=== PATIENT | female | born 1970 | race Caucasian/White ===

== ENCOUNTER → 2018-06-16 15:47 | Outpatient (REF) | payer SELFPAY | LOC: OM 15:47 | PROVIDERS: PCP General Practice; Visit Provider Nurse Practitioner Family | DX: Z11.1 Encounter for screening for respiratory tuberculosis (principal) ==

== ENCOUNTER 2019-03-28 20:26 | Emergency (ER) | payer BC, SELFPAY ==
[2019-03-28] VITALS (13 sets, daily range): BP systolic 51–134; BP diastolic 19–77; PULSE 87–115; RESP 16–30; TEMP 36.7; O2SAT 93–98
[2019-03-28] MEDS: Famotidine 20 MG TAB PO (21:10)
[2019-03-28] MEDS: Mylanta Suspension 30 ML CUP PO (21:10)
--- NOTE | 2019-03-28 21:18 | ED.GENADUL_ITS ---
Discharge Plan Disposition Patient Disposition: HOME Discharge Details Chief Complaint: Chest Pain Clinical Impression: Chest pain Primary Care Provider: Darren Solitario ED Provider: Francisco Saldivar Home Meds and New Rx's Prescriptions: No Action No Known Home Meds RF: 0 Discharge Instructions Instructions: Chest Pain (ED) Additional Instructions: Diagnostic workup today was limited and should not be considered comprehensive or complete. A chest xray was recommended as part of your diagnostic workup and this was refused. It is recommended that definitive testing including stress test be performed as soon as possible and ideally within 72 hours of ED evaluation for chest pain concerning for possible acute coronary syndrome (heart attack). Please contact your primary care physician to arrange follow-up. Return to the ER at anytime for additional diagnostic workup or if you are concerned about any new symptoms. Referrals: Darren Solitario MD [Primary Care Provider] - Medical Decision Making 21:14 --49-year-old female here with chest discomfort and sensation of rapid heart rate after sudden onset of vomiting. I suspect likely food poisoning related to egg salad sandwich and esophageal irritation related to vomiting. Consider ACS. ECG reviewed and interpreted by me: Normal sinus rhythm 93 bpm, normal axis, no STEMI, nondiagnostic. Plan to check troponin. Consider pulmonary him with some. Patient does not have any known risk factors. Patient low risk by Wells criteria. She was slightly tachycardic at just under 100 bpm. Plan to check d-dimer. IV access was difficult per nursing. Patient refusing additional IV access at this time. Patient also refusing recommended chest x-ray. Reviewed risks and benefits of additional IV access and additional diagnostic testing, patient verbalized understanding of my concerns and reason for testing and risks of not having testing, patient decisional making capacity, patient provided informed refusal for chest x-ray and IV access at this time. Patient is mildly anxious. I offered anxiolytic and patient refused. 23:28 -- Labs reviewed. Initial trop neg. Patient feels much better after mylanta and pepcid, symptoms completely resolved, requests discharge. I explained that heart attack not yet ruled out and plan for delt trop. Patient initially resistant but agreed to stay in ED for second trop at 3 hours but refused to stay longer. Patient was informed of risk of leaving ED prior to completion of workup. Patient has decisional making capacity and provided informed refusal for further observation awaiting lab results and additional diagnostics that were recommended. -- Patient agreed to stay until trop resulted. Trop neg. Usual and customary discharge instructions were provided. HPI General Mode of arrival: ambulatory . Date/Time Provider Initiated Documentation: 03/28/19 20:50 . Limitations to Documentation: no limitations . Information obtained by: patient . HPI Narrative: 49-year-old female with history of asthma presents with chief complaint of chest discomfort. Patient notes that around 8 PM she suddenly developed nausea and vomiting. She vomited 3 times. Vomit was noted to be yellow in color. This occurred shortly after eating an egg salad sandwich. No one else consumed the egg salad. After vomiting she was noted to have chest discomfort described as pressure rated 5- 6/10 and associated sensation of rapid heart rate. Patient notes chest pain worse and lying down. She also had some associated shortness of breath. Chest discomfort has persisted although not as severe. Discomfort is currently rated 3/10. Discomfort is localized to left and central anterior chest. She has no associated abdominal pain. Nausea has resolved. No shortness of breath at this time. She continues to feel as though her heart is beating faster than normal. No recent long distance travel. No immobility. No surgery. No leg swelling or calf pain. Related Data Home Medications Medication Instructions Recorded Confirmed Unknown [No Known Home Meds] 03/28/19 03/28/19 Allergies Allergy/AdvReac Type Severity Reaction Status Date / Time hay AdvReac Mild sneezing, Uncoded 03/28/19 20:34 runny nose General Stated Complaint: Chest Pain CHARANJIT: 2 Review of Systems Review of Systems All systems reviewed & are unremarkable except as noted in HPI and below Constitutional Denies fever(s) Cardiovascular Reports chest pain, Denies pedal edema and Reports palpitations Endocrine Reports palpitations PFSH Family History Mother Hyperlipidemia Father Hyperlipidemia Social History Do you feel safe at home: Yes Do you feel safe in your relationship?: Yes Exam Const General: no acute distress, well developed, acute distress, not in distress and anxious Orientation: alert and awake Limitations: mental status not altered HENMT Head: normal to inspection and normocephalic Mouth: moist mucous membranes Eyes General: appearance normal, both eyes and all related structures Conjunctivae: conjunctivae normal Neck Neck: trachea midline, supple and no lymphadenopathy noted Resp Effort & Inspection: normal respiratory effort, cough, not labored and no respiratory distress Auscultation: clear to auscultation bilaterally, no rales, no rhonchi and no wheezes Cardio Jugular venous pressure: no JVD Rate: regular rate Rhythm: regular rhythm Heart Sounds: S1 normal, S2 normal, no gallops, no murmurs and no rubs GI Palpation: soft and nontender Skin General skin exam: no rashes or lesions noted and dry skin Other: warm Neuro General: alert, awake and oriented x3 Extrem General: clubbing, cyanosis or edema noted and no calf tenderness Psych Appearance: grossly normal Affect: normal affect Course Vital Signs Temperature 36.7 C 03/28/19 20:34 Pulse 97 H 03/28/19 20:34 Respiratory Rate 16 03/28/19 20:34 Blood Pressure 134/77 03/28/19 20:34 Pulse Oximetry 98 03/28/19 20:34 Temperature 36.7 C 03/28/19 20:34 Temperature Source Temporal Artery Scan 03/28/19 20:34 Pulse 97 H 03/28/19 20:34 Respiratory Rate 16 03/28/19 20:34 Respiratory Effort 03/28/19 20:34 Blood Pressure 134/77 03/28/19 20:34 Blood Pressure Position Sitting 03/28/19 20:34 Pulse Oximetry 98 03/28/19 20:34 Oxygen Delivery Method Room Air 03/28/19 20:34 Oxygen Flow Rate 0 03/28/19 20:34
[2019-03-28 21:23] LABS: Abs Immature Grans 0.03 k/cumm (0.0-0.09); Absolute Basophil Count 0.03 k/cumm (0.0-0.2); Absolute Eosinophil Count 0.44 k/cumm (0.0-0.7); Absolute Lymphocyte Count 2.34 k/cumm (1.2-3.4); Absolute Monocyte Count 0.58 k/cumm (0.11-0.7); Absolute Neutrophil Count 7.26 k/cumm (1.2-6.7); Basophils % 0.3; Eosinophils % 4.1; HGB 14.3 g/dL (12.0-15.5); Immature Grans % 0.3; Lymphocytes % 21.9; Mean Corp. HGB Concentration 33.3 g/dL (32.0-36.0); Mean Corpuscular Volume 93.3 fL (80-95); Mean Platelet Volume 10.5 fL (8.0-11.0); Monocytes % 5.4; Platelet Count 298 x1000/uL (130-400); RBC 4.61 m/cumm (4.00-5.20); RBC Distribution Width 13.2 % (11.7-14.6); White Blood Cell Count 10.68 k/cumm (4.4-10.8)
[2019-03-28 21:36] LABS: ALT 39 U/L (12-78); AST 30 U/L (15-37); Albumin 3.9 g/dL (3.4-5.0); Alkaline Phosphatase 74 U/L (46-116); Anion Gap 7.8 mmol/L (3-11); BUN 16 mg/dL (7-18); Bilirubin, Total 0.3 mg/dL (0.2-1.0); CO2 30.2 mmol/L (21.0-32.0); CREATININE 0.83 mg/dL (0.55-1.02); Calcium 9.3 mg/dL (8.5-10.1); Chloride 100 mmol/L (98-107); Glucose 93 mg/dL (70-100); Potassium 3.6 mmol/L (3.5-5.1); Sodium 138 mmol/L (136-145); Total Protein 8.1 g/dL (6.4-8.2)
[2019-03-28 21:38] LABS: Troponin I < 0.02 ng/mL (0.00-0.06)
[2019-03-28 22:02] LABS: D-Dimer 240 ng/mlFEU (<500)
[2019-03-29 00:04] LABS: Troponin I < 0.02 ng/mL (0.00-0.06)
[2019-03-29 21:20] VITALS: BP 124/55; PULSE 89; RESP 18; O2SAT 97
== END 2019-03-29 00:10 | disposition home or self-care (01) ==
PROVIDERS: Emergency Provider Student in an Organized Health Care Education/Training Program; PCP General Practice
DX: R07.9 Chest pain, unspecified (principal); R00.0 Tachycardia, unspecified; R11.10 Vomiting, unspecified
CPT/HCPCS: 36415; 80053; 93005; 99284; 84484; 85025; 85379; 93010

== ENCOUNTER 2019-12-16 00:28 | Outpatient (CLI) | payer BC, SELFPAY ==
[2019-12-16 10:23] LABS: Calculated LDL 125 mg/dL (<100); Cholesterol 187 mg/dL (<200); HDL Cholesterol 50 mg/dL (40-60); Triglyceride 64 mg/dL (<150)
== END 2019-12-16 00:48 ==
PROVIDERS: PCP Nurse Practitioner; Visit Provider Nurse Practitioner
DX: Z13.6 Encounter for screening for cardiovascular disorders (principal)
CPT/HCPCS: 36415; 80061

== ENCOUNTER 2020-01-25 20:07 | Outpatient (REF) | payer BC, SELFPAY | END 2020-01-25 20:27 | LOC: LBN 20:07 | PROVIDERS: PCP Nurse Practitioner; Visit Provider Nurse Practitioner | DX: R30.0 Dysuria (principal) | CPT/HCPCS: 87086 ==

== ENCOUNTER 2020-02-05 21:09 | Outpatient (REF) | payer BC, SELFPAY ==
[2020-02-07 15:09] LABS: Chlamydia Result Negative (Negative); GC Result Negative (Negative)
== END 2020-02-05 21:29 ==
LOC: NCHCN 21:09
PROVIDERS: PCP Nurse Practitioner; Visit Provider Nurse Practitioner Family
DX: R30.0 Dysuria (principal)
CPT/HCPCS: 87491; 87591; 87480; 87510; 87660

== ENCOUNTER 2020-02-06 07:20 | Emergency (ER) | payer BC, SELFPAY ==
[2020-02-06] VITALS (15 sets, daily range): BP systolic 123–144; BP diastolic 49–68; PULSE 89–111; RESP 16–23; TEMP 37.7; O2SAT 95–97
[2020-02-06 07:55] LABS: Bilirubin Negative (Negative); Blood Large (Negative); Clarity Clear (Clear); Glucose Negative (Negative); Ketones Negative (Negative); Leukocyte Esterase Trace (Negative); Nitrite Negative (Negative); Specific Gravity 1.015 (1.005-1.025); Urobilinogen 0.2 EU/dL (Up TO 0.2)
[2020-02-06] MEDS: Lactated Ringers 1,000 ML 1000 ML IV (07:55)
[2020-02-06 08:00] LABS: Abs Immature Grans 0.02 k/cumm (0.0-0.09); Absolute Basophil Count 0.02 k/cumm (0.0-0.2); Absolute Eosinophil Count 0.03 k/cumm (0.0-0.7); Absolute Lymphocyte Count 0.94 k/cumm (1.2-3.4); Absolute Monocyte Count 0.37 k/cumm (0.11-0.7); Absolute Neutrophil Count 8.78 k/cumm (1.2-6.7); Basophils % 0.2; Eosinophils % 0.3; HCT 41.4 % (36.0-46.0); HGB 13.9 g/dL (12.0-15.5); Immature Grans % 0.2 %; Lymphocytes % 9.3; Mean Corp. HGB Concentration 33.6 g/dL (32.0-36.0); Mean Corpuscular Hemoglobin 31.2 pg (27.0-33.0); Mean Corpuscular Volume 92.8 fL (80-95); Mean Platelet Volume 10.1 fL (8.0-11.0); Monocytes % 3.6; Neutrophils % 86.4; Platelet Count 319 x1000/uL (130-400); RBC 4.46 m/cumm (4.00-5.20); RBC Distribution Width 13.4 % (11.7-14.6); White Blood Cell Count 10.16 k/cumm (4.4-10.8)
[2020-02-06 08:11] LABS: Bacteria Few HPF (Negative); C & S Indicated? Yes; Casts Negative LPF (Negative); Crystals Negative HPF (Negative); Epithelial Cells Few HPF (Negative); Mucus Negative (Negative); WBC 20-50 HPF (0-5)
[2020-02-06 08:17] LABS: ALT 30 U/L (14-59); AST 16 U/L (15-37); Albumin 3.7 g/dL (3.4-5.0); Alkaline Phosphatase 66 U/L (46-116); Anion Gap 9.9 mmol/L (3-11); BUN 9 mg/dL (7-18); Bilirubin, Total 0.5 mg/dL (0.2-1.0); CO2 26.1 mmol/L (21.0-32.0); Calcium 9.1 mg/dL (8.5-10.1); Chloride 104 mmol/L (98-107); Glucose 112 mg/dL (74-106); Magnesium 1.9 mg/dL (1.8-2.4); Potassium 3.6 mmol/L (3.5-5.1); Sodium 140 mmol/L (136-145); Total Protein 7.8 g/dL (6.4-8.2)
[2020-02-06 08:19] LABS: Troponin I < 0.05 ng/Ml (<0.06)
--- NOTE | 2020-02-06 08:45 | DI.RAD_ITS ---
EXAM: XR PORTABLE CHEST AP XR PORTABLE CHEST AP CLINICAL HISTORY: fever. fever TECHNIQUE: 2D digital imaging was performed. COMPARISON: No exams were available for comparison FINDINGS: LUNGS: Clear. No pleural abnormality seen. HEART: Normal. MEDIASTINUM: Normal. OTHER FINDINGS: None. IMPRESSION: No acute pulmonary findings. DATA REPOSITORY: RADIATION DOSE DELIVERED:
--- NOTE | 2020-02-06 08:51 | W.ED.GENAD ---
Discharge Plan Disposition Patient Disposition: HOME Condition: Stable Discharge Details Chief Complaint: Chest Pain Clinical Impression: UTI (urinary tract infection), Fever and chills Primary Care Provider: Melanie Oliver ED Provider: Danika Gaviria Home Meds and New Rx's Prescriptions: New nitrofurantoin monohyd/m-cryst [Macrobid] 100 mg capsule 100 mg PO BID Qty: 14 RF: 0 Continued albuterol sulfate [ProAir HFA] 90 mcg/actuation HFA aerosol inhaler 2 puff IH 6XD PRN (Reason: shortness of breath or wheezing) Qty: 18 RF: 0 metronidazole [Flagyl] 500 mg tablet 500 mg PO BID Qty: 14 RF: 0 metronidazole 500 mg tablet 500 mg PO Q12H Qty: 14 RF: 0 Discharge Instructions Instructions: Urinary Tract Infection in Women (ED), Fever in Adults (ED) Additional Instructions: Drink plenty of fluids. Use antibiotic as prescribed. Consider probiotic. Use Flagyl prescribed by your doctor. Follow-up promptly with your doctor for reevaluation for any persistence of symptoms lasting greater than 2 to 3 days. Have coded testing as discussed. Do not work until you are cleared by a negative test to return to nursing homes. Convalescent home until testing results. Tylenol for fever if needed. Urine culture pending Observe closely for any abdominal pain. For any increasing abdominal pain or worsening abdominal symptoms return to the emergency room for consideration of more advanced imaging as discussed. Return for any difficulty breathing, shortness of breath, chest pain or worsening symptoms sooner if needed as discussed Stand Alone Forms: Work Release Medical Decision Making Is a very pleasant 50-year-old patient presenting to the emergency room for complaints of fever for the last 3 days. Patient was recently seen and treated after developing dysuria, urgency, frequency and lower abdominal discomfort greater than 1 week ago for urinary tract infection with a course of Keflex 250 mg 4 times daily for 1 week. Patient was compliant with antibiotics did feel improved after taking antibiotic however completed course of antibiotics on Wednesday morning, by Wednesday evening she had return of dysuria, urgency and frequency. Patient reports intermittent urinary symptoms. She has had fever since Wednesday, the last 3 days has had persistent fever relieved with Tylenol. Patient denies headaches or dizziness. Patient did see her PCP yesterday had repeat urinalysis which was unremarkable for persistent infection also had vaginal cultures performed. 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 Patient reports while at work yesterday morning at approximately 8:00 in the morning she noted her heart racing and associated chest pressure. Patient reports intermittent heart racing since that time. She reports chest pressure and discomfort persisted through the day yesterday, worse in the evening. Patient was able to sleep last night, she did wake with a fever at approximately 2:00 this morning took Tylenol. Patient reports chest pressure persisted and morning. Patient reports pressure is less at this time, has no chest pain currently. Patient denies any associated radiating chest pain symptoms. Patient reports predominantly tachycardia she did report at work yesterday she noted a heart rate up to 150 while working. Patient reports heart rate elevated while ambulating as well as when sedentary. Patient concerned with the etiology of persistent fever. Patient's initial EKG reveals a heart rate of 94, sinus rhythm, normal intervals. No ST segment changes. In consideration for possible Covid infection this patient does work with the public at a long-term, there have been no positive cases confirmed at facility she works in however at this time community spread is a consideration. Will consider testing for Covid if no other source is identifiable. Plan to check chest x-ray, urinalysis, CBC, lactate and blood cultures. Plan to provide 2 L of IV fluid given patient's reported tachycardia and febrile concerns. Patient agrees with this plan of care. CBC today reveals white blood cell count of 10.16 with minimal elevation in neutrophils. CMP normal. Urinalysis reveals large blood although patient is menstruating, trace leukocyte Estrace present, white blood cells present 20-50 per have powered field and few bacteria present on microscopic. Recent urine culture: Urine Culture Final 01/27/20-807 Day 1 Result ISOLATES BELOW ISOLATE 1 COLONY COUNT 10,000 - 50,000 COLONIES/ML ISOLATE 1 APPEARANCE Mixed Gram Positive Berry Day 2 Result ISOLATES BELOW ISOLATE 1 COLONY COUNT 10,000 - 50,000 COLONIES/ML ISOLATE 1 APPEARANCE Mixed Gram Positive Berry Possible contaminated collection Organism 1 GRAM POSITIVE BERRY,MIXED COLONY COUNT 10,000 - 50,000 COLONIES/ML Patient reports her chest pain and upper abdominal pain have entirely improved after receiving IV fluids. Patient's vital signs normalized. Patient had mild complaints of persistent suprapubic discomfort although is currently menstruating. Patient feels significantly improved at this time. Chest x-ray unremarkable for acute process. Initial troponin as well as serial troponin remain negative. Patient is low risk heart score. Patient does not feel she needs additional admission to the hospital or further cardiac testing at this time as her chest pressure has entirely improved. I did recommend given her complaints of chest pressure despite normal evaluation in the emergency room that she should have prompt follow-up with PCP. Patient agrees with this plan of care. Advised to return for any increasing cardiac symptoms, difficulty breathing dizziness or weakness. After discussion with the patient, urinalysis results were reviewed and discussed previous urine culture. Patient did report significant improvement with course of oral antibiotics and urinary symptoms. Patient reports return of urinary symptoms after completing course of antibiotics. Given patient's urinalysis results which are positive for white blood cell and small amounts of bacteria and patient's persistent dysuria urgency and frequency we will plan to add new antibiotic specifically Macrobid as she was previously on Keflex. Patient agrees with this plan of care. Patient's vaginal path testing did reveal positive Gardnerella, PCP has already called in prescription for Flagyl which patient plans to begin. Blood cultures were drawn, lactate is negative, white blood count normal, patient improving in symptoms. We did discuss more advanced imaging related to patient's abdominal complaints however given her improvement in symptoms she would prefer to avoid any advanced imaging at this time and closely observe her abdomen for any persistence or worsening pain. Given patient's work as a physical therapist in multiple nursing homes locally will test for possible Covid as source of fever and quarantine patient until results return. We did discuss alarming symptoms of Covid for which patient should return. patient agrees with this plan of care. Patient feels comfortable discharge home at this time. Again patient is feeling improved. The patient was stable and requested discharge. Prior to discharge, my usual and customary return precautions were reviewed with the patient - this included follow-up instructions and reasons to return to the Emergency Department if conditions worsens, does not improve as expected, or other new concerns arise. HPI General Date/Time Provider Initiated Documentation: 02/06/20 07:34. HPI Narrative: Is a 50-year-old patient presenting to the emergency room for complaints of persistent fever. Patient reports fever for the last 3 days intermittently. Patient was treated greater than 1 week ago for urinary tract infection, completed a course of Keflex 250 mg 4 times daily for 7 days on Wednesday morning. Patient reports Wednesday evening she had mild return of dysuria. She did report urinary frequency overnight on Wednesday. Patient reports persistent febrile sensation for the last 3 days. Patient reports yesterday while working she had onset of tachycardia and chest pressure. Denies radiating symptoms to the neck or arms. Denies back pain. Patient reports chest pressure fairly constant throughout the day worsened in the evening. Patient was able to sleep. She awoke feeling febrile again at approximately 2:00 took Tylenol and was able to sleep for the remainder of the morning. Patient reports she has persistent chest pressure this morning which is improved at this time. Patient reports mild abdominal aching but no nausea, vomiting or diarrhea. Patient does report some lower abdominal discomfort which was similar to what she experienced with UTI previously. Patient denies nasal congestion, sore throat or coughing. No headaches or dizziness. Denies body ache. Eating and drinking without difficulty however has no appetite in the last 24 hours. Related Data Home Medications Medication Instructions Recorded Confirmed albuterol sulfate 90 mcg/actuation 2 puff IH 6XD PRN #18 gm 01/30/20 02/06/20 aerosol inhaler metronidazole 500 mg tablet 500 mg PO BID #14 tab 02/06/20 metronidazole 500 mg tablet 500 mg PO Q12H #14 tab 02/06/20 nitrofurantoin monohyd/m-cryst 100 mg PO BID #14 cap 02/06/20 [Macrobid] Previous Rx's Medication Instructions Recorded albuterol sulfate 90 mcg/actuation 2 puff IH 6XD PRN #18 gm 01/30/20 aerosol inhaler metronidazole 500 mg tablet 500 mg PO BID #14 tab 02/06/20 metronidazole 500 mg tablet 500 mg PO Q12H #14 tab 02/06/20 nitrofurantoin monohyd/m-cryst 100 mg PO BID #14 cap 02/06/20 [Macrobid] Allergies Allergy/AdvReac Type Severity Reaction Status Date / Time hay AdvReac Mild sneezing, Uncoded 02/06/20 07:31 runny nose General Stated Complaint: Chest Pain CHARANJIT: 3 Review of Systems Constitutional Constitutional: Reports chills, Denies fatigue, Reports fever(s), Denies headache(s), Reports malaise and Reports poor appetite ENT Ears, Nose, Mouth, and Throat: Denies vertigo, Denies dizziness, Denies headache(s), Denies nasal congestion, Denies post nasal drip, Denies sinus pain, Denies sinus pressure and Denies sore throat Cardiovascular Cardiovascular: Denies chest pain with activity, Denies leg edema, Denies lightheadedness, Reports palpitations, Denies dyspnea and Denies dyspnea on exertion Respiratory Respiratory: Denies chest congestion, Denies cough, Denies dyspnea, Denies dyspnea on exertion, Denies stridor and Denies wheezing Gastrointestinal Gastrointestinal: Denies diarrhea, Denies nausea and Denies vomiting Genitourinary Genitourinary: Denies difficulty voiding, Denies genital pruritis, Reports dysuria, Reports urinary urgency, Denies vaginal pruritus and Reports other (Currently menstruating) Integumentary/Breasts Skin/Breast: Denies rash Neurologic Neurologic: Denies vertigo, Denies dizziness and Denies headache(s) Endocrine Endocrine: Denies fatigue and Reports palpitations Allergic/Immunologic Allergic/Immunologic: Denies wheezing [facility] Social History Smoking/Tobacco Use Status: Never Alcohol Intake: current Alcohol Intake frequency: holidays/special occasions only Drug use: Never Substance use type: does not use Caregiver/Support person: No Household members: spouse Housing: house Communication Needs: None Do you need help understanding health information?: Never Pets and animals: Yes Pets and animals: cat(s), dog(s) and other Details: rabbit Sexually active: Yes Do you think of yourself as: straight/heterosexual Current gender identity: female What is your relationship status?: How often do you talk on the phone with friends or family?: three or more times per week How often do you get together with friends or relatives?: twice per week How often do you attend caodaism or hoahaoism services?: decline to answer Do you belong to any clubs or organized social groups?: no Panel score (0-1 are the most socially isolated patients): 2 What type of physical activity do you participate in: walking Frequency: daily Aster/Jehovah'S Witness: Spiritual Special aster needs: No Seatbelt use: always Helmet use: Yes Helmet use: always Drive intox or ride w/intox 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 Well hydrated. Alert and oriented. HENMT: Head nomocephalic, normal to inspection. Atraumatic. Hearing grossly normal. External ear canal no erythema or swelling. TM normal bilaterally. Nose normal to inspection. No rhinnorhea. Normal facial exam. Oral mucosa normal. Tounge normal. Dentition normal. Mild erythema to posterior oropharynx. Uvula midline. EYES: General normal appearance. Alignment normal. Eyelids normal. Conjunctiva normal. Sclera normal. PERRL. NECK: Normal visual inspection. FROM. No lymphadenopathy. Trachea midline. No Midline tenderness. CHEST: Normal insepection of the chest. RESP: Normal respiratory effort. Speaking full sentences. No cough. No wheezing. No retractions. Clear to auscaltation. Breath sound equal and present bilaterally. CARDIO: No JVD. Normal PMI. Regular Rate. Regular Rhythm. Normal peripheral pulses. GI: Normal inspection of abdomen. No distension. Soft. Mild diffuse tenderness to the upper and lower quadrants, no sharp pain with palpation. No peritoneal signs. Bowel sounds present in all 4 quadrants. No rebound. No gaurding. MUSCULOSKELETAL: Normal Gait. FROM of all extremities. Distal neurovascularly intact. Sensation intact distally. Back: No CVA tenderness noted bilaterally SKIN: Normal. Dry. No rashes. NEURO: Alert and awake. Speech clear. PSYCH: Normal affect. Cooperative. Course Vital Signs Vital signs: Vital Signs Temperature 37.7 C H 02/06/20 07:27 Pulse 111 H 02/06/20 07:27 Respiratory Rate 16 02/06/20 07:27 Blood Pressure 123/49 L 02/06/20 07:27 Pulse Oximetry 95 02/06/20 07:27 Temperature 37.7 C H 02/06/20 07:27 Temperature Source Tympanic 02/06/20 07:27 Pulse 111 H 02/06/20 07:27 Respiratory Rate 16 02/06/20 07:56 Respiratory Effort Non-Labored 02/06/20 07:56 Respiratory Depth Normal 02/06/20 07:56 Respiratory Pattern Normal 02/06/20 07:56 Blood Pressure 123/49 L 02/06/20 07:27 Blood Pressure Position Sitting 02/06/20 07:27 Pulse Oximetry 95 02/06/20 07:27 Oxygen Delivery Method Room Air 02/06/20 07:27 Oxygen Flow Rate 0 02/06/20 07:27 Pain Level 5 02/06/20 07:56 Lab/Test Results Lab/Test Results: 02/06/20 08:41 Blood Blood Culture - Pending 02/06/20 08:41 Blood Blood Culture - Pending 02/06/20 07:42 Urine - Reflex from Ua Urine Culture - Pending Laboratory Tests Range/Units 02/06/20 02/06/20 02/06/20 07:42 07:51 07:51 WBC (4.4-10.8) k/cumm 10.16 RBC (4.00-5.20) m/cumm 4.46 Hgb (12.0-15.5) g/dL 13.9 Hct (36.0-46.0) % 41.4 MCV (80-95) fL 92.8 MCH (27.0-33.0) pg 31.2 MCHC (32.0-36.0) g/dL 33.6 RDW (11.7-14.6) % 13.4 Plt Count (130-400) x1000/uL 319 MPV (8.0-11.0) fL 10.1 Immature Gran % % 0.2 Neutrophils % 86.4 Lymphocytes % 9.3 Monocytes % 3.6 Eosinophils % 0.3 Basophils % 0.2 Absolute Neutrophils (1.2-6.7) k/cumm 8.78 H Absolute Lymphocytes (1.2-3.4) k/cumm 0.94 L Absolute Monocytes (0.11-0.7) k/cumm 0.37 Absolute Eosinophils (0.0-0.7) k/cumm 0.03 Absolute Basophils (0.0-0.2) k/cumm 0.02 Sodium (136-145) mmol/L 140 Potassium (3.5-5.1) mmol/L 3.6 Chloride (98-107) mmol/L 104 Carbon Dioxide (21.0-32.0) mmol/L 26.1 Anion Gap (3-11) mmol/L 9.9 BUN (7-18) mg/dL 9 Creatinine (0.55-1.02) mg/dL 0.90 Estimated GFR/1.73 m2 (mL/min/1.73m2) >= 60.00 Glucose (74-106) mg/dL 112 H Calcium (8.5-10.1) mg/dL 9.1 Magnesium (1.8-2.4) mg/dL 1.9 Total Bilirubin (0.2-1.0) mg/dL 0.5 AST (15-37) U/L 16 ALT (14-59) U/L 30 Alkaline Phosphatase (46-116) U/L 66 Troponin I (<0.06) ng/Ml < 0.05 Total Protein (6.4-8.2) g/dL 7.8 Albumin (3.4-5.0) g/dL 3.7 Urine Color (Yellow) Yellow Urine Clarity (Clear) Clear Urine pH (5-8) 6.0 Ur Specific [place] (1.005-1.025) 1.015 Urine Protein (Negative) mg/dL Negative Urine Ketones (Negative) mg/dL Negative Urine Blood (Negative) Large H Urine Nitrite (Negative) Negative Urine Bilirubin (Negative) Negative Urine Urobilinogen (Up TO 0.2) EU/dL 0.2 Ur Leukocyte Esterase (Negative) Trace H Urine RBC (0-2) HPF 5-10 H Urine WBC (0-5) HPF 20-50 H Ur Epithelial Cells (Negative) HPF Few Urine Crystals (Negative) HPF Negative Urine Bacteria (Negative) HPF Few Urine Casts (Negative) LPF Negative Urine Mucus (Negative) Negative Ur Culture Indicated? Yes Urine Glucose (Negative) mg/dL Negative POC- Test(urine) Negative
[2020-02-06 09:29] LABS: Lactate 1.2 mmol/L (0.6-1.4)
[2020-02-06] MEDS: Normal Saline 1,000 ML 1000 ML IV (09:53)
[2020-02-06 11:05] LABS: Troponin I < 0.05 ng/Ml (<0.06)
--- NOTE | 2020-02-07 06:26 | W.ED.FU ---
Date of service: 02/06/20 Follow Up Plan: Patient seen here yesterday and sent home on Macrobid for UTI and Flagyl for vaginosis. She was also placed in quarantine for COVID. She called this morning reporting new symptoms of nausea and vomiting. At this point she is having difficulty keeping Tylenol or liquids down. She is not having fever any further. She has no shortness of breath. Heart rate goes up a little bit with exertion but not much. Pulse ox has been fine. She is not having abdominal pain. Symptoms are likely related to taking Macrobid and Flagyl. Some possibility related to COVID as GI symptoms can sometimes predominate. However, at this point it does not sound that she would be ill enough to warrant return visit to the ED. Would recommend continue quarantine. Will call in prescription for Zofran ODT to her pharmacy to warehouse picker later today. In the meantime hold her antibiotics and stick with liquids. Once Zofran available may resume antibiotics but stagger dosing should not taking both at the same time. Return to ED for increasing shortness of breath, altered mental status, persistent vomiting, syncope, increasing saturations with tachycardia.
--- NOTE | 2020-02-07 09:19 | NUR.NOTE ---
Nursing Note: On this date, prescription for Zofran ODT 4mg one PO q6hr prn for nausea/vomiting was called in to [facility] Per Dr. Isauro Buckley. Haley Murillo.
== END 2020-02-06 11:35 | disposition home or self-care (01) ==
PROVIDERS: Emergency Medicine; Emergency Provider Physician Assistant; PCP Nurse Practitioner
DX: N39.0 Urinary tract infection, site not specified (principal); R50.9 Fever, unspecified; R07.9 Chest pain, unspecified; R00.0 Tachycardia, unspecified; N76.0 Acute vaginitis; B96.89 Other specified bacterial agents as the cause of diseases classified elsewhere
CPT/HCPCS: 36415; 80053; 81025; 87040; 93005; 96360; 96361; 99285; U0003; 71045; 81003; 81015; 83605; 83735; 84484; 85025; 87086; 93010

== ENCOUNTER 2020-02-06 11:32 | Outpatient (CLI) | payer BC, SELFPAY ==
[2020-02-07 15:28] LABS: COVID-19 RT-PCR Result Not Detected (NotDetected)
== END 2020-02-06 11:52 ==
PROVIDERS: PCP Nurse Practitioner; Visit Provider Physician Assistant
DX: Z20.828 Contact with and (suspected) exposure to other viral communicable diseases (principal)
CPT/HCPCS: U0003

== ENCOUNTER 2020-11-25 14:37 | Emergency (ER) | payer OTHER, SELFPAY ==
[2020-11-25] VITALS (9 sets, daily range): BP systolic 101–133; BP diastolic 41–66; PULSE 65–83; RESP 11–21; TEMP 36.6; O2SAT 97–99
--- NOTE | 2020-11-25 15:37 | W.ED.GENAD ---
Discharge Plan Disposition Patient Disposition: HOME Condition: Good Discharge Details Clinical Impression: Abdominal pain, Gallbladder polyp Primary Care Provider: Melanie Oliver ED Provider: Jessica Mensah Home Meds and New Rx's Prescriptions: Continued albuterol sulfate [ProAir HFA] 90 mcg/actuation HFA aerosol inhaler 2 puff IH 6XD PRN (Reason: shortness of breath or wheezing) Qty: 18 RF: 0 ascorbic acid (vitamin C) 2,000 mg Tablet Extended Release 2,000 mg PO DAILY RF: 0 zinc 25 mg Tablet 25 mg PO DAILY RF: 0 vitamin A 5,000 unit/0.1 mL Drops PO RF: 0 ergocalciferol (vitamin D2) 200 mcg/mL (8,000 unit/mL) Drops RF: 0 Bacterin 2 tab PO 4XW RF: 0 Spore Probiotics RF: 0 Discharge Instructions Instructions: Abdominal Pain (ED) Additional Instructions: Your exam, imaging and labs are reassuring here today. You were noted to have a polyp on her gallbladder which you should have followed up with repeat ultrasound in 6 months. Please discuss this further with his primary care. If you symptoms return, you may try Mylanta. If you find the Mylanta also, you may try a proton pump inhibitor such as Prilosec. These medications are available [id number]. Please take as prescribed. I have referred you to gastroenterology, you will hear from care management regarding follow-up. If you develop increased pain, inability stay hydrated, fever/chills or other new/worsening symptoms please seek care urgently once again. Referrals: Melanie Oliver, CERTIFIED NUCLEAR MEDICINE TECHNOLOGIST [Primary Care Provider] - Discharge Data Discharge Date/Time-TO BE ENTERED AT DEPARTURE: 11/25/20 17:37 Medical Decision Making <HAROON Meraz - Last Filed: 11/26/20 08:19> 50-year-old female with history of chronic abdominal pain since January presents with 2-day history of increased abdominal pain, nausea, vomiting x1. She is seeing a adjusto writer operator in [place] for small intestine bacterial overgrowth. She had her first Covid vaccine on Wednesday and questions if this may be a delayed reaction. Clinically she appears well, nontoxic. Vital signs are unremarkable. Her abdominal examination does reveal mild discomfort across the entire upper aspect with deep palpation but certainly no guarding, rebound, rigidity. Differential includes but not excluded to cholecystitis, gastritis, peptic ulcer disease, pancreatitis, irritable bowel syndrome, gastroenteritis, appendicitis, UTI, , pyelonephritis, etc. Patient is stating that she would like to get to the bottom of this today and questions if advanced imaging is indicated. Will obtain IV access, obtain CBC, CMP, urinalysis, lipase, urine . Given her abdomen is not acute, will opt for abdominal ultrasound versus CT at the moment. Given she reports nausea, vomiting, decreased p.o. intake since Wednesday, will give IV fluids. Medical Records Medical records reviewed: Yes I reviewed the patient's medical records. Lab Data Lab results reviewed: Yes I reviewed the patient's lab results. Labs: Laboratory Tests Range/Units 11/25/20 15:28 WBC (4.4-10.8) 10^3/uL 7.61 RBC (3.93-5.22) 10^6/uL 4.23 Hgb (11.2-15.7) g/dL 13.3 Hct (36.0-46.0) % 39.8 MCV (80-95) fL 94.1 MCH (27.0-33.0) pg 31.4 MCHC (32.0-36.0) % 33.4 RDW (11.7-14.6) % 12.2 Plt Count (130-400) 10^3/uL 282 MPV (8.0-11.0) fL 10.8 Immature Gran % 0.3 Neutrophils % 70.7 Lymphocytes % 21.3 Monocytes % 6.6 Eosinophils % 0.7 Basophils % 0.4 Nucleated RBC % % 0 Absolute Neutrophils (1.2-6.7) 10^3/uL 5.39 Absolute Lymphocytes (1.2-3.4) 10^3/uL 1.62 Absolute Monocytes (0.1-0.8) 10^3/uL 0.50 Absolute Eosinophils (0.0-0.7) 10^3/uL 0.05 Absolute Basophils (0.0-0.2) 10^3/uL 0.03 <HAROON Vizcarra - Last Filed: 11/25/20 17:28> Care transition myself and Sebastian Schuler PA-C. Please see his initial note regarding presentation, exam and history. In brief, patient is 50-year-old female with upper abdominal pain since January. This is been intermittent. She is concerned that she may have peptic ulcer disease versus gallbladder disease. Patient has been diagnosed with small intestinal bacterial overgrowth. Has been on special diet for this. Labs completed thus far include CBC, CMP and lipase with no significant abnormality. Patient did have blood and ketones in his urine. Negative leukocyte esterase, negative nitrites. This has reflex to culture. Ultrasound pending at this time. FINDINGS: Liver: Normal. No masses. Gallbladder: Echogenic nodule here to the gallbladder wall measuring 9 mm. Probable polyp. Gallbladder wall thickness 2 mm. Negative sonographic Vásquez sign. Common bile duct: 3 mm. Pancreas: Visualized pancreas is unremarkable. Right kidney: 10.7 cm. No nephrolithiasis or hydronephrosis. IMPRESSION: 9 mm gallbladder polyp. Recommend six-month follow-up ultrasound. I discussed his findings at length with the patient. Patient began her menses today which likely explains the blood in her urine. She states that this time she is asymptomatic except for menstrual cramps. I did discuss the use of Mylanta as her pain seems to be primarily epigastric in nature. However, she is not symptomatic at this time I do not feel that dose of her now would be of much yield. She will try Mylanta if she has onset of symptoms once again. I advised that if it is excessive for her she may start a proton pump inhibitor which is available [id number]. As the patient has had chronic abdominal symptoms, leading to her diagnosis of small intestinal bacterial overgrowth, I did refer her to gastroenterology. I advised that if she does have ulcers, she may require an upper endoscopy which could not be completed through the ED today. Patient would prefer to follow-up at [place] for this. All the patient's questions and concerns were addressed. We discussed return precautions. She will follow-up with her primary care for referral for repeat ultrasound in 6 months. Patient is agreement with this plan. HPI <HAROON Meraz - Last Filed: 11/26/20 08:19> General Mode of arrival: ambulatory. Date/Time Provider Initiated Documentation: 11/25/20 14:38. Limitations to Documentation: no limitations. Information obtained by: patient. HPI Narrative: This is a 50-year-old female, past medical history that includes small intestine bacterial overgrowth, presenting to the ER for evaluation. She states that since January she has had bilateral upper abdominal pain that has been there more often than not, occasionally made worse with food, sometimes associated with nausea. She has not brought this to the attention of her primary care provider. She has had 2 separate bowel infection and was placed on antibiotics twice which she states recapping in her stomach. She decided to see a naturopathic provider in [place], testing was performed, she changed her diet, and symptoms have somewhat gotten better. She was given the Covid vaccination on Wednesday, states that she immediately had a reaction to the vaccine, and required observation for approximately 30 minutes. She subsequently felt ill for the next 24 hours but then went back to baseline. On Wednesday while at work she states that her typical abdominal pain worsened, 10 out of 10, associated with worsening nausea and one episode of vomiting. It was also associated with a global headache. She reports decreased oral intake since Wednesday. She denies fever but reports subjective chills. Denies any chest pain, shortness of breath, back pain, dysuria. She reports chronic bowel issues, previously has been more so diarrhea in nature but as of late has had more constipation. She is still moving her bowels. She states that her pain was 10 out of 10 earlier today but then broke. States the pain now is a 6 or 7 out of 10 and much more tolerable, near her baseline. She states that she is concerned about gallstones versus an ulcer versus a delayed reaction to the Covid vaccine. Related Data Home Medications Medication Instructions Recorded Confirmed albuterol sulfate 90 mcg/actuation 2 puff IH 6XD PRN #18 gm 01/30/20 11/25/20 aerosol inhaler Bacterin 2 tab PO 4XW 11/25/20 Spore Probiotics 11/25/20 ascorbic acid (vitamin C) 2,000 mg PO DAILY 11/25/20 11/25/20 ergocalciferol (vitamin D2) mcg 11/25/20 vitamin A unit PO 11/25/20 zinc 25 mg PO DAILY 11/25/20 11/25/20 Previous Rx's Medication Instructions Recorded albuterol sulfate 90 mcg/actuation 2 puff IH 6XD PRN #18 gm 01/30/20 aerosol inhaler Allergies Allergy/AdvReac Type Severity Reaction Status Date / Time corn Allergy Nausea Unverified 11/25/20 15:41 gluten Allergy Nausea Unverified 11/25/20 15:41 peanut Allergy Nausea Unverified 11/25/20 15:41 tomato Allergy Nausea Unverified 11/25/20 15:41 wheat Allergy Nausea Unverified 11/25/20 15:41 hay AdvReac Mild sneezing, Uncoded 11/25/20 15:41 runny nose General Stated Complaint: Abd Prob CHARANJIT: 3 <HAROON Vizcarra Last Filed: 11/25/20 17:28> General Mode of arrival: ambulatory. Limitations to Documentation: no limitations. Information obtained by: patient and RN notes reviewed. Review of Systems <HAROON Meraz - Last Filed: 11/26/20 08:19> Constitutional Constitutional: Reports chills, Denies fatigue, Denies fever(s), Reports headache(s) and Denies weakness ENT Ears, Nose, Mouth, and Throat: Reports headache(s) Cardiovascular Cardiovascular: Denies chest pain and Denies dyspnea Respiratory Respiratory: Denies cough and Denies dyspnea Gastrointestinal Gastrointestinal: Reports abdominal pain, Reports constipation, Reports diarrhea, Reports nausea and Reports vomiting Genitourinary Genitourinary: Denies dysuria Musculoskeletal Musculoskeletal: Denies back pain, Denies numbness and Denies tingling Integumentary/Breasts Skin/Breast: Denies rash Neurologic Neurologic: Reports headache(s), Denies numbness, Denies tingling and Denies weakness Endocrine Endocrine: Denies fatigue <HAROON Vizcarra Last Filed: 11/25/20 17:28> Constitutional Constitutional: Reports as per HPI, Denies chills, Reports fatigue, Denies fever(s), Denies frequent falls, Denies snoring and Denies weakness Eyes Eyes: Reports as per HPI, Denies blurry vision, Denies change in vision and Reports photophobia ENT Ears, Nose, Mouth, and Throat: Denies vertigo and Denies neck pain Cardiovascular Cardiovascular: Reports as per HPI, Denies chest pain, Denies lightheadedness, Denies radiating jaw, neck or arm pain, Denies dyspnea and Denies dyspnea on exertion Respiratory Respiratory: Reports as per HPI, Denies chest congestion, Denies cough, Denies dyspnea, Denies dyspnea on exertion, Denies snoring, Denies stridor and Denies wheezing Gastrointestinal Gastrointestinal: Reports as per HPI, Denies abdominal pain, Denies change in bowel habits, Denies nausea and Denies vomiting Musculoskeletal Musculoskeletal: Reports as per HPI, Denies back pain, Denies myalgias, Denies muscle cramps, Denies neck pain and Denies numbness Integumentary/Breasts Skin/Breast: Reports as per HPI and Denies rash Neurologic Neurologic: Reports as per HPI, Denies abnormal movements, Denies abnormal speech, Denies behavioral changes, Denies confusion, Denies vertigo, Denies frequent falls, Denies localized weakness, Denies numbness, Denies sensory deficit and Denies weakness Psychiatric Psychiatric: Denies behavioral changes and Denies confusion Endocrine Endocrine: Reports fatigue Allergic/Immunologic Allergic/Immunologic: Denies wheezing PFSH <HAROON Meraz - Last Filed: 11/26/20 08:19> Family History Mother Hyperlipidemia Father Hyperlipidemia Alcohol abuse Brother No problems noted. Maternal Grandfather Alcohol abuse Lung cancer Paternal Grandfather Alcohol abuse Maternal Grandmother Emphysema lung Paternal Grandmother , age 97 Heart disease Social History Smoking/Tobacco Use Status: Never Smoking risk assessment performed?: Yes Alcohol Intake: never Drug use: Never Substance use type: does not use Caregiver/Support person: No Household members: spouse Housing: house Communication Needs: None Do you need help understanding health information?: Never Pets and animals: Yes Pets and animals: cat(s), dog(s) and other Details: rabbit Sexually active: Yes Do you think of yourself as: straight/heterosexual Current gender identity: female What is your relationship status?: How often do you talk on the phone with friends or family?: three or more times per week How often do you get together with friends or relatives?: twice per week How often do you attend protestant or congregation services?: decline to answer Do you belong to any clubs or organized social groups?: no Panel score (0-1 are the most socially isolated patients): 2 What type of physical activity do you participate in: walking Frequency: daily Aster/Baptism: Spiritual Special aster needs: No Seatbelt use: always Helmet use: Yes Helmet use: always Drive intox or ride w/intox tanker driver: No Do you feel safe at home: Yes Do you feel safe in your relationship?: Yes Female Reproductive History Menstrual Age of Menarche: 14 Duration of menses: 3-5 days Exam <HAROON Meraz - Last Filed: 11/26/20 08:19> Const General: cooperative, healthy appearing, comfortable and no acute distress Orientation: alert and awake [facility] Head: normal to inspection, normocephalic and atraumatic Eyes General: appearance normal, both eyes and all related structures Conjunctivae: conjunctivae normal Sclera: sclerae normal Neck Neck: normal visual inspection, full ROM, no meningeal signs, trachea midline and supple Resp Effort & Inspection: normal respiratory effort and able to speak in complete sentences Auscultation: clear to auscultation bilaterally Cardio Rate: regular rate Rhythm: regular rhythm GI Inspection: normal to inspection Palpation: soft, not firm, no guarding, no pulsatile masses and tender (Diffuse mild upper abdomen, deep palpation) Auscultation: normal bowel sounds Back/Spine/Pelvis Back: No back tenderness Skin General skin exam: no rashes or lesions noted Neuro General: patient alert, patient awake, moves all extremities and no focal motor deficits Cognition: normal cognition Gait: normal gait Sensory Exam: no sensory deficits noted Extrem General: normal to inspection and full ROM Psych Appearance: grossly normal Mental Status: mental status grossly normal <HAROON Vizcarra - Last Filed: 11/25/20 17:28> Const General: cooperative, healthy appearing, uncomfortable, no acute distress, well developed and well groomed Nutritional Appearance: average body habitus and well nourished Orientation: alert, awake and oriented x3 HENNC Head: normal to inspection, no palpable skull fracture, normocephalic and atraumatic Ears: hearing grossly normal bilaterally, external ears normal and TM's normal bilaterally General nose exam: external nose normal Mouth: oral mucosae normal and moist mucous membranes Throat: posterior oropharynx normal Eyes General: appearance normal, both eyes and all related structures Alignment and Position: alignment normal Periorbital: periorbital findings normal Eyelids: eyelids normal Sclera: sclerae normal Cornea: corneas normal Pupils: PERRL EOM: EOM intact bilaterally Neck Neck: normal visual inspection, full ROM, no lymphadenopathy and no meningeal signs Resp Effort & Inspection: normal respiratory effort, able to speak in complete sentences and no respiratory distress Auscultation: clear to auscultation bilaterally, no rales, no rhonchi and no wheezes Cardio Rate: regular rate Rhythm: regular rhythm Heart Sounds: S1 normal and S2 normal GI Inspection: normal to inspection and non-distended Palpation: soft, no hepatosplenomegaly, not firm, no guarding, not rigid and nontender Percussion: normal to percussion Auscultation: normal bowel sounds Back/Spine/Pelvis Cervical Spine: normal cervical lordosis and cervical ROM normal Skin General skin exam: no rashes or lesions noted Neuro General: patient alert, patient awake and patient oriented x3 Cranial Nerves: CN's II-XI intact bilaterally Cognition: normal cognition Speech: speech normal Gait: normal gait Motor: muscle tone normal throughout, strength 5/5 throughout, no pronator drift, no movement abnormalities noted and no fasciculations Sensory Exam: no sensory deficits noted Coordination: [id number] test normal and [id number] test normal Extrem General: normal to inspection, capillary refill normal, no pedal edema and no calf tenderness Psych Appearance: grossly normal and well kempt Mental Status: mental status grossly normal Speech and Movement: speech and movement normal Course <HAROON Meraz - Last Filed: 11/26/20 08:19> Vital Signs Vital signs: Vital Signs Temperature 36.6 C 11/25/20 14:46 Pulse 80 11/25/20 14:46 Respiratory Rate 13 11/25/20 14:46 Blood Pressure 133/66 11/25/20 14:46 Pulse Oximetry 97 11/25/20 14:46 Temperature 36.6 C 11/25/20 14:46 Temperature Source Skin 11/25/20 14:46 Pulse 71 11/25/20 15:01 Pulse 74 11/25/20 15:02 Respiratory Rate 21 11/25/20 15:02 Respiratory Effort Non-Labored 11/25/20 14:55 Blood Pressure 117/55 L 11/25/20 15:01 Blood Pressure Mean 69 11/25/20 15:01 Blood Pressure Position Sitting 11/25/20 14:46 Pulse Oximetry 98 11/25/20 15:02 Oxygen Delivery Method Room Air 11/25/20 14:46 Oxygen Flow Rate 0 11/25/20 14:46 Pain Level 4 11/25/20 14:46 Sign Out <HAROON Meraz - Last Filed: 11/26/20 08:19> Sign Out Data: Sign Out Comment: Abdominal pain since January, worse since Wednesday associated with nausea, vomiting x1. Had a reaction to her Covid vaccine on Wednesday, felt ill for the next 24 hours, and then back to baseline. Concern today per the patient is for potential gallstones versus ulcer versus reaction to her Covid vaccine. Clinically she appears well, nontoxic, nonacute abdominal examination. Obtaining CBC, CMP, lipase, urinalysis, test, and initiating abdominal ultrasound. I see no clear indication for emergent CT imaging. Will likely discharge with GI consultation. Last updated by Ken Schuler PA at 11/25/20 15:52
[2020-11-25] MEDS: Normal Saline 1,000 ML 1000 ML IV (15:38)
[2020-11-25 15:43] LABS: Abs Immature Grans 0.02 10^3/uL (0.0-0.06); Absolute Basophil Count 0.03 10^3/uL (0.0-0.2); Absolute Eosinophil Count 0.05 10^3/uL (0.0-0.7); Absolute Lymphocyte Count 1.62 10^3/uL (1.2-3.4); Absolute Neutrophil Count 5.39 10^3/uL (1.2-6.7); Basophils % 0.4; Eosinophils % 0.7; HCT 39.8 % (36.0-46.0); HGB 13.3 g/dL (11.2-15.7); Immature Grans % 0.3; Lymphocytes % 21.3; MCH 31.4 pg (27.0-33.0); MCHC 33.4 % (32.0-36.0); MCV 94.1 fL (80-95); MPV 10.8 fL (8.0-11.0); Monocytes % 6.6; Neutrophils % 70.7; Nucleated RBC 0 %; Platelet Count 282 10^3/uL (130-400); RBC 4.23 10^6/uL (3.93-5.22); RDW 12.2 % (11.7-14.6); RDW-SD 42.5 fL; WBC 7.61 10^3/uL (4.4-10.8)
[2020-11-25 15:48] LABS: Bilirubin Negative (Negative); Blood Large (Negative); Clarity Clear (Clear); Glucose Negative (Negative); Ketones 15 mg/dL (Negative); Leukocyte Esterase Negative (Negative); Nitrite Negative (Negative); Specific Gravity 1.015 (1.005-1.025); Urobilinogen 0.2 EU/dL (Up TO 0.2); pH 5.5 (5-8)
[2020-11-25 15:56] LABS: ALT 25 U/L (14-59); AST 17 U/L (15-37); Albumin 3.8 g/dL (3.4-5.0); Alkaline Phosphatase 60 U/L (46-116); Anion Gap 6.4 mmol/L (3-11); BUN 13 mg/dL (7-18); Bilirubin, Total 0.7 mg/dL (0.2-1.0); CO2 29.6 mmol/L (21.0-32.0); Calcium 9.1 mg/dL (8.5-10.1); Chloride 103 mmol/L (98-107); Glucose 93 mg/dL (74-106); Potassium 3.6 mmol/L (3.5-5.1); Sodium 139 mmol/L (136-145); Total Protein 7.4 g/dL (6.4-8.2)
[2020-11-25 16:01] LABS: Bacteria Moderate HPF (Negative); C & S Indicated? Yes; Casts Negative LPF (Negative); Crystals Negative HPF (Negative); Epithelial Cells Few HPF (Negative); Mucus Negative (Negative)
[2020-11-25 16:07] LABS: Lipase 94 U/L (73-393)
--- NOTE | 2020-11-25 16:15 | DI.US_ITS ---
EXAM: US ABDOMEN LIMITED CLINICAL HISTORY: epigastric pain, concern for gallbladder issue TECHNIQUE: Ultrasound abdomen performed using standard protocol. COMPARISON: No exams were available for comparison FINDINGS: LIVER: Normal size and echogenicity. No focal liver lesions are seen.. GALLBLADDER: 6 x 9 millimeter nonshadowing echogenic focus, consistent with a polyp. No evidence of cholelithiasis. No evidence of wall thickening. No pericholecystic fluid identified. BIRCH'S SIGN: Negative. BILIARY SYSTEM: No intrahepatic or extrahepatic biliary ductal dilation. KIDNEYS: The right kidney is normal in size. No evidence of renal calculi. No evidence of hydronephro sis. No renal mass or cyst identified. Left kidney not evaluated. PANCREAS: Normal where visualized. ABDOMINAL AORTA AND IVC: Visualized portions normal caliber. ASCITES: None seen. IMPRESSION: Gallbladder polyp. No evidence of acute cholecystitis. DATA REPOSITORY:
--- NOTE | 2020-11-25 16:49 | DI.VRAD_ITS ---
PROCEDURE INFORMATION: Exam: US Abdomen, Limited; Right Upper Quadrant Exam date and time: 11/25/2020 4:43 PM Age: 50 years old Clinical indication: Abdominal pain; Generalized TECHNIQUE: Imaging protocol: US abdomen. Real time ultrasound with image documentation. Limited exam focused on the right upper quadrant. COMPARISON: No relevant prior studies available. FINDINGS: Liver: Normal. No masses. Gallbladder: Echogenic nodule here to the gallbladder wall measuring 9 mm. Probable polyp. Gallbladder wall thickness 2 mm. Negative sonographic Vásquez sign. Common bile duct: 3 mm. Pancreas: Visualized pancreas is unremarkable. Right kidney: 10.7 cm. No nephrolithiasis or hydronephrosis. IMPRESSION: 9 mm gallbladder polyp. Recommend six-month follow-up ultrasound. Dictated and Authenticated by: Cassius Chavez MD. Ordering:FIDENCIO Lopez MD
--- NOTE | 2020-11-25 17:27 | NUR.NOTE ---
Referral to Care Management to follow up with gastroenterology in [facility].Nursing Note:
--- NOTE | 2020-11-27 11:08 | CMPROGNOTE_ITS ---
- If Service Date Differs Date of service: 11/27/20 Time of Service: 11:08 Care Management Progress Note Nona is seen in the ED on 11/25/20 for abdominal pain. At the request of ED provider, CM coordinates a referral to [facility] in [place], [place], to assist Nona in obtaining an appointment.
== END 2020-11-25 17:37 | disposition home or self-care (01) ==
PROVIDERS: Physician Assistant; Emergency Provider Physician Assistant; PCP Nurse Practitioner
DX: K82.4 Cholesterolosis of gallbladder (principal); R10.10 Upper abdominal pain, unspecified
CPT/HCPCS: 36415; 80053; 81025; 83690; 96361; 99284; 76705; 81003; 81015; 85025; 87086

== ENCOUNTER 2021-01-24 17:39 | Outpatient (REF) | payer BC, SELFPAY ==
--- NOTE | 2021-01-24 15:30 | PAPFT_PTH ---
PATIENT: Nona Canales LOC: [facility] U#:[id number] AGE/SX: 50/F ROOM: RE01/24/[address]: KARAN Frazier : 1970 BED: DIS: 01/24/2021 SPEC #: [id number] RECD: 01/24/21 17:47 STATUS: STUART REQ #: [id number] VILMA: 01/24/21 15:[address]: Reema Dukes DEPT: [facility] Cytology RECD BY: [place] Odonnell ENTERED: 01/24/21 17:47 SP TYPE: PAPFT OTHR DR: Melanie Oliver, PhD MONITOR WORKER Tissues: 1 - CX/ENDOCX FOR PAP SMEARS Procedures: PAP THIN PREP/UVM Screening HPV DNA PROBE Comments: [id number]
== END 2021-01-24 17:40 | disposition home or self-care (01) ==
LOC: LBN 17:39
PROVIDERS: PCP Nurse Practitioner; Visit Provider Nurse Practitioner Family
DX: Z12.4 Encounter for screening for malignant neoplasm of cervix (principal); Z11.51 Encounter for screening for human papillomavirus (HPV)
CPT/HCPCS: 88142; 87624

== ENCOUNTER 2021-02-10 15:08 | Outpatient (REF) | payer BC, SELFPAY ==
--- NOTE | 2021-02-10 14:55 | CER_PTH ---
PATIENT: Nona Canales LOC: [facility] U#:[id number] AGE/SX: 51/F ROOM: RE02/10/[address]: Kylah Ac DO : 1970 BED: DIS: 02/10/2021 SPEC #: [id number] RECD: 02/10/21 18:07 STATUS: STUART RE #: [id number] VILMA: 02/10/21 14:[address]: Kylah Ac DEPT: Surgical Specimen RECD BY: [place] Odonnell ENTERED: 02/10/21 18:08 SP TYPE: CER OTHR DR: Melanie Oliver, PhD HARBOR DEPARTMENT MANAGER Tissues: 1 - CERVICAL BIOPSY Procedures: GROSS AND MICRO LEVEL 4 Comments: [id number]
== END 2021-02-10 15:09 | disposition home or self-care (01) ==
LOC: LBN 15:08
PROVIDERS: PCP Nurse Practitioner; Visit Provider Obstetrics & Gynecology
DX: N84.1 Polyp of cervix uteri (principal)
CPT/HCPCS: 88305

== ENCOUNTER 2021-07-25 15:53 | Emergency (ER) | payer BC, SELFPAY ==
[2021-07-25 16:09] VITALS: BP 109/57; PULSE 79; RESP 16; TEMP 36.7; O2SAT 98
--- NOTE | 2021-07-25 16:15 | DI.US_ITS ---
Exam(s) US LOWER EXTREMITY VENOUS RT EXAM: US LOWER EXTREMITY VENOUS RT CLINICAL HISTORY: Right calf pain, R/O DVT TECHNIQUE: Right lower extremity venous ultrasound performed using grayscale, color-flow, and spectr al Doppler analysis. COMPARISON: No exams were available for comparison FINDINGS: The right common femoral, femoral and popliteal veins demonstrate normal compressibility, augmentatio n, and color Doppler. The posterior tibial veins are patent. The saphenofemoral junction is unremark able. There is no evidence of a Vargas cyst. The soft tissues are unremarkable. IMPRESSION: No DVT. DATA REPOSITORY:
--- NOTE | 2021-07-25 16:40 | W.ED.GENAD ---
Discharge Plan Disposition Patient Disposition: HOME Condition: Stable Discharge Details Clinical Impression: Leg pain, right Primary Care Provider: Melanie Oliver ED Provider: Radha Johnson Home Meds and New Rx's Prescriptions: No Action albuterol sulfate [ProAir HFA] 90 mcg/actuation HFA aerosol inhaler 2 puff IH 6XD PRN (Reason: shortness of breath or wheezing) Qty: 18 RF: 0 ascorbic acid (vitamin C) 2,000 mg Tablet Extended Release 2,000 mg PO DAILY RF: 0 zinc 25 mg Tablet 25 mg PO DAILY RF: 0 vitamin A 5,000 unit/0.1 mL Drops PO RF: 0 ergocalciferol (vitamin D2) 200 mcg/mL (8,000 unit/mL) Drops RF: 0 Spore Probiotics RF: 0 Discharge Instructions Instructions: Leg Pain (ED) Additional Instructions: Rest, ice, compression, elevation. At this time the ultrasound shows no evidence of DVT. Please take Tylenol or Ibuprofen with food every 4-6 hours as needed for pain and swelling. Follow up with primary care provider in 3-5 days. Return to ED sooner if any worsening or concerns. Increase oral fluids. Referrals: Melanie Oliver, [employer]IST [Primary Care Provider] - Discharge Data Discharge Date/Time-TO BE ENTERED AT DEPARTURE: 07/25/21 17:03 Medical Decision Making 51-year-old female presents to the ER with chief complaint of right calf tightness and pain which began yesterday. Patient is concerned for blood clot due to receiving the O[employer] Osor[employer] vaccination approximately 6 days ago. Patient has never had a blood clot before. She denies any recent trauma or long trips in a car plane. Denies any chest pain or shortness of breath. She is not on control and is a non-smoker. 1643: Preliminary result received from trailer technician negative for DVT. Will wait for the official radiology report. FINDINGS: Right deep veins: Unremarkable. The common femoral, femoral, proximal profunda femoral and popliteal veins are patent without thrombus. Normal Doppler waveforms. Normal compressibility and/or augmentation response. Right superficial veins: Unremarkable. Saphenofemoral junction is patent without thrombus. Soft tissues: Unremarkable. IMPRESSION: No evidence of deep vein thrombosis. Discussed ultrasound results with patient who verbalized understanding. Patient discharged instructed to follow-up with PCP if any concerning symptoms reappear. This text was generated using [employer] system, please disregard any oddities of phrase or misspellings. HPI General Mode of arrival: ambulatory. Date/Time Provider Initiated Documentation: 07/25/21 16:17. Limitations to Documentation: no limitations. Information obtained by: patient and RN notes reviewed. HPI Narrative: 51-year-old female presents to the ER with chief complaint of right calf tightness and pain which began yesterday. Patient is concerned for blood clot due to receiving the O[employer] & Osorio vaccination approximately 6 days ago. Patient has never had a blood clot before. She denies any recent trauma or long trips in a car plane. Denies any chest pain or shortness of breath. She is not on control and is a non-smoker. Related Data Home Medications Medication Instructions Recorded Confirmed albuterol sulfate 90 mcg/actuation 2 puff IH 6XD PRN #18 gm 01/30/20 11/25/20 aerosol inhaler Spore Probiotics 11/25/20 11/29/20 ascorbic acid (vitamin C) 2,000 mg PO DAILY 11/25/20 11/29/20 ergocalciferol (vitamin D2) mcg 11/25/20 11/29/20 vitamin A unit PO 11/25/20 11/29/20 zinc 25 mg PO DAILY 11/25/20 11/29/20 Previous Rx's Medication Instructions Recorded albuterol sulfate 90 mcg/actuation 2 puff IH 6XD PRN #18 gm 01/30/20 aerosol inhaler Allergies Allergy/AdvReac Type Severity Reaction Status Date / Time corn Allergy Nausea Unverified 05/30/21 14:45 gluten Allergy Nausea Unverified 05/30/21 14:45 peanut Allergy Nausea Unverified 05/30/21 14:45 tomato Allergy Nausea Unverified 05/30/21 14:45 wheat Allergy Nausea Unverified 05/30/21 14:45 hay AdvReac Mild sneezing, Uncoded 05/30/21 14:45 runny nose General Stated Complaint: Vascular CHARANJIT: 4 Review of Systems All systems reviewed & are unremarkable except as noted in HPI and below Musculoskeletal Musculoskeletal: Denies deformity, Denies arthralgias, Denies joint swelling, Denies numbness and Reports radiating pain into limb Neurologic Neurologic: Denies numbness [facility] Medical History (Updated 07/25/21 @ 16:54 by Radha Johnson) Cervical polyp Family History Mother Hyperlipidemia Father Hyperlipidemia Alcohol abuse Brother No problems noted. Maternal Grandfather Alcohol abuse Lung cancer Paternal Grandfather Alcohol abuse Maternal Grandmother Emphysema lung Paternal Grandmother , age 97 Heart disease Social History Smoking/Tobacco Use Status: Never Smoking risk assessment performed?: Yes Alcohol Intake: never Drug use: Never Substance use type: does not use Caregiver/Support person: No Household members: spouse Housing: house Communication Needs: None Do you need help understanding health information?: Never Pets and animals: Yes Pets and animals: cat(s), dog(s) and other Details: rabbit Sexually active: Yes Do you think of yourself as: straight/heterosexual Current gender identity: female What is your relationship status?: How often do you talk on the phone with friends or family?: three or more times per week How often do you get together with friends or relatives?: twice per week How often do you attend mormon or sikh services?: decline to answer Do you belong to any clubs or organized social groups?: no Panel score (0-1 are the most socially isolated patients): 2 What type of physical activity do you participate in: walking Frequency: daily Aster/Congregational: Spiritual Special aster needs: No Seatbelt use: always Helmet use: Yes Helmet use: always Drive intox or ride w/intox cryogenic transport driver: No Do you feel safe at home: Yes Do you feel safe in your relationship?: Yes Female Reproductive History Menstrual Age of Menarche: 14 Duration of menses: 3-5 days Exam Narrative Exam Narrative: Constitutional: Alert and oriented x3. Appears stated age. Normal body habitus. Head: Normocephalic, no trauma. Eyes: Pupils PERRLA, Red reflex noted, EOM's intact. Eyelids symmetrical without lesions, discharge, or swelling. ENT: Bilateral TM's WNL, External ear normal to inspection, no mastoid TTP, swelling, or erythema, Nasal turbinates WNL, no nasal discharge. Normal dentition, Posterior pharynx WNL, no exudate. Chest: RRR, Normal S1, S2, distal pulses intact. Resp: Lungs clear to auscultation bilaterally, no wheezes, rales, or rhonchi. Musculoskeletal: Normal gait, 5/5 strength to all four extremities. Skin: No suspicious rashes or lesions. Capillary refill less than 2 sec. Neurologic: Cranial nerves II-XII intact. Alert and oriented x 3. DTR's intact. Hematologic/Lymphatic: Healing bruises noted to right posterior calf. No masses palpated slight warmth palpated to right lower extremity no significant swelling appreciated. Course Vital Signs Vital signs: Vital Signs Temperature 36.7 C 07/25/21 16:09 Pulse 79 07/25/21 16:09 Respiratory Rate 16 07/25/21 16:09 Blood Pressure 109/57 L 07/25/21 16:09 Pulse Oximetry 98 07/25/21 16:09 Temperature 36.7 C 07/25/21 16:09 Temperature Source Skin 07/25/21 16:09 Pulse 79 07/25/21 16:09 Respiratory Rate 16 07/25/21 16:09 Respiratory Effort 07/25/21 16:14 Blood Pressure 109/57 L 07/25/21 16:09 Pulse Oximetry 98 07/25/21 16:09 Pain Level 8 07/25/21 16:09
--- NOTE | 2021-07-25 16:51 | DI.VRAD_ITS ---
PROCEDURE INFORMATION: Exam: US Duplex Right Lower Extremity Veins, Limited Exam date and time: 07/25/2021 4:19 PM Age: 51 years old Clinical indication: Right calf pain, R/O dvt TECHNIQUE: Imaging protocol: Real-time Duplex ultrasound of the Right Lower Extremity with 2-D fuentes scale, color Doppler flow and spectral waveform analysis with image documentation. Limited exam was focused on the right lower extremity veins. COMPARISON: No relevant prior studies available. FINDINGS: Right deep veins: Unremarkable. The common femoral, femoral, proximal profunda femoral and popliteal veins are patent without thrombus. Normal Doppler waveforms. Normal compressibility and/or augmentation response. Right superficial veins: Unremarkable. Saphenofemoral junction is patent without thrombus. Soft tissues: Unremarkable. IMPRESSION: No evidence of deep vein thrombosis. Dictated and Authenticated by: Concha Foster MD. Ordering:MOHAMUD Garcia MD
[2021-07-25 16:57] VITALS: BP 111/45; PULSE 69; TEMP 36.7; O2SAT 98
== END 2021-07-25 17:03 | disposition home or self-care (01) ==
PROVIDERS: Emergency Provider Registered Nurse Emergency; PCP Nurse Practitioner
DX: M79.661 Pain in right lower leg (principal)
CPT/HCPCS: 99284; 93971

== ENCOUNTER 2021-12-03 13:06 | Outpatient (CLI) | payer BC, SELFPAY ==
--- NOTE | 2021-12-03 13:00 | RT.EKG_ITS ---
APPROVED REPORT Exam: Resting ECG Reason for Exam: chest pressure Patient Location: O HR:73 bpm ECG Measurements Heart Rate 73 AXIS AL 162 P 30 QRSd 86 QRS 44 QT 372 T 19 QTc 409 Conclusion Sinus rhythm...normal P axis, V-rate 60- 99 Normal Electrocardiogram
== END 2021-12-03 13:07 | disposition home or self-care (01) ==
LOC: DI.CM 13:07
PROVIDERS: PCP Nurse Practitioner; Visit Provider Family Medicine
DX: R07.89 Other chest pain (principal)
CPT/HCPCS: 93010

== ENCOUNTER → 2022-03-02 01:13 | Outpatient (CLI) | payer BC, SELFPAY ==
--- NOTE | 2022-03-02 08:30 | DI.MAMMO_ITS ---
Exam(s) MAMMO SCREENING EXAM: MAMMO SCREENING CLINICAL HISTORY: screening,Z12.39 TECHNIQUE: Mammograms were interpreted according to the usual protocol including computer analysis w [employer] CAD system, tomosynthesis and C-view imaging. COMPARISON: No exams were available for comparison. Baseline examination. FINDINGS: The breasts are composed of scattered fibroglandular densities, Breast Density category B. No suspicious masses or suspicious microcalcifications are seen. No skin thickening or abnormal axillary lymph nodes are seen. IMPRESSION: BI-RADS Category 1, Negative mammogram Yearly screening mammography is recommended. Breast Density - Category B, scattered fibroglandular densities. A negative radiographic report should not delay biopsy if a dominant or clinically suspicious mass is present. Up to ten percent of cancers are not identified on mammography. A negative report may reinforce clinical impression. Adenosis and dense breasts may obscure an underlying neoplasm. False positive reports average 6 to 10%. Patient will receive a letter notifying them of these results.
== END ==
PROVIDERS: PCP Nurse Practitioner; Visit Provider Nurse Practitioner
DX: Z12.31 Encounter for screening mammogram for malignant neoplasm of breast (principal)
CPT/HCPCS: 77063; 77067

== ENCOUNTER 2022-10-27 16:48 | Outpatient (REF) | payer BC, SELFPAY | END 2022-10-27 16:49 | disposition home or self-care (01) | LOC: NCHCN 16:48 | PROVIDERS: PCP Nurse Practitioner Family; Visit Provider Nurse Practitioner Family | DX: N89.8 Other specified noninflammatory disorders of vagina (principal) | CPT/HCPCS: 87480; 87510; 87660 ==

== ENCOUNTER 2023-01-18 21:19 | Outpatient (REF) | payer BC, SELFPAY | END 2023-01-18 21:20 | disposition home or self-care (01) | LOC: LBN 21:19 | PROVIDERS: PCP Nurse Practitioner Family; Visit Provider Nurse Practitioner Family | DX: Z00.00 Encounter for general adult medical examination without abnormal findings (principal); N89.8 Other specified noninflammatory disorders of vagina; N95.1 Menopausal and female climacteric states | CPT/HCPCS: 87480; 87510; 87660 ==

== ENCOUNTER 2023-01-22 02:33 | Outpatient (CLI) | payer BC, SELFPAY ==
[2023-01-22 16:08] LABS: HCT 39.3 % (36.0-46.0); HGB 13.4 g/dL (11.2-15.7); MCH 32.4 pg (27.0-33.0); MCHC 34.1 % (32.0-36.0); MCV 95 fL (80-95); MPV 11.2 fL (8.0-11.0); Platelet Count 195 10^3/uL (130-400); RBC 4.13 10^6/uL (3.93-5.22); RDW-SD 42.2 fL; WBC 6.34 10^3/uL (4.4-10.8)
[2023-01-22 17:16] LABS: Vitamin D 25 Total 43.4 ng/mL (30-100)
[2023-01-22 17:19] LABS: ALT 25 U/L (14-59); AST 19 U/L (15-37); Albumin 3.8 g/dL (3.4-5.0); Alkaline Phosphatase 57 U/L (46-116); Anion Gap 8.2 mmol/L (3-11); BUN 19 mg/dL (7-18); Bilirubin, Total 0.6 mg/dL (0.2-1.0); CO2 28.8 mmol/L (21.0-32.0); CREATININE 0.9 mg/dL (0.55-1.02); Calcium 9.2 mg/dL (8.5-10.1); Calculated LDL 136 mg/dL (<100); Chloride 104 mmol/L (98-107); Cholesterol 219 mg/dL (<200); Estimated GFR 77.88 (mL/min/1.73m2); Glucose 82 mg/dL (74-106); HDL Cholesterol 77 mg/dL (40-60); Potassium 3.5 mmol/L (3.5-5.1); Sodium 141 mmol/L (136-145); Total Protein 7.6 g/dL (6.4-8.2); Triglyceride 32 mg/dL (<150); Vitamin B12 736 pg/mL (193-986)
== END 2023-01-22 02:34 | disposition home or self-care (01) ==
PROVIDERS: PCP Nurse Practitioner Family; Visit Provider Nurse Practitioner Family
DX: K63.89 Other specified diseases of intestine (principal); N95.1 Menopausal and female climacteric states; Z00.00 Encounter for general adult medical examination without abnormal findings
CPT/HCPCS: 36415; 80053; 80061; 82306; 85027; 82607

== ENCOUNTER 2023-08-09 18:04 | Outpatient (REF) | payer BC, SELFPAY | END 2023-08-09 18:05 | disposition home or self-care (01) | LOC: LBN 18:04 | PROVIDERS: PCP Nurse Practitioner Family; Visit Provider Obstetrics & Gynecology | DX: N76.0 Acute vaginitis (principal); B96.89 Other specified bacterial agents as the cause of diseases classified elsewhere | CPT/HCPCS: 87480; 87510; 87660 ==

== ENCOUNTER 2024-08-25 11:04 | Outpatient (REF) | payer BC, SELFPAY ==
--- NOTE | 2024-08-25 16:30 | PAPFT_PTH ---
PATIENT: Nona Canales LOC: [facility] U#:[id number] AGE/SX: 54/F ROOM: RE08/25/[address]: Cathie Mcmahon MD : 1970 BED: DIS: 08/25/2024 SPEC #: [id number] RECD: 08/28/24 12:52 STATUS: STUART REQ #: [id number] VILMA: 08/25/24 16:[address]: Cathie Mcmahon DEPT: [facility] Cytology RECD BY: Pilar Dillon ENTERED: 08/28/24 12:52 SP TYPE: PAPFT OTHR DR: Key Yu, JESSIE Tissues: 1 - CX/ENDOCX FOR PAP SMEARS Procedures: PAP THIN PREP/[facility] Screening HPV DNA PROBE Comments: [id number] (HPV 16 & 18/45)
== END 2024-08-25 11:05 | disposition home or self-care (01) ==
LOC: LBN 11:04
PROVIDERS: PCP Nurse Practitioner Family; Visit Provider Obstetrics & Gynecology
DX: Z01.419 Encounter for gynecological examination (general) (routine) without abnormal findings (principal); N95.1 Menopausal and female climacteric states
CPT/HCPCS: 88142; 87624

== ENCOUNTER 2024-11-17 00:08 | Outpatient (CLI) | payer BC, SELFPAY ==
--- NOTE | 2024-11-17 07:45 | DI.MAMMO_ITS ---
Exam(s) MAMMO SCREENING EXAM: MAMMO SCREENING CLINICAL HISTORY: screening,z12.39. TECHNIQUE: Bilateral full field digital CC and MLO mammographic images were obtained with 3D tomosyn thesis and utilizing computer aided detection (CAD). COMPARISON: Prior mammograms were reviewed. FINDINGS: There are no new spiculated masses nor malignant appearing microcalcification groups. There is no significant architectural distortion nor skin thickening-retraction. IMPRESSION: No radiographic evidence of malignancy. BI-RADS Category 1 - Negative Breast Density - Category B - Scattered areas of fibroglandular density Breast density Category C or D implies that the patient has dense breast tissue. Dense breast tissue can make it harder to find cancer on a mammogram. Dense breast tissue is also associated with an incr eased risk of breast cancer. This information about the result of the mammogram report was provided to the patient to raise their awareness. Use this report when you speak with the patient about their risks for breast cancer, which includes their family history. At that time, you may recommend additional screening tests (Ultrasoun d or MRI) as these tests may add significant information. A negative radiographic report should not delay biopsy if a dominant or clinically suspicious mass is present. Up to ten percent of cancers are not identified on mammography. A negative report may reinforce clinical impression. Adenosis and dense breasts may obscure an underlying neoplasm. False positive reports average 6 to 10%. Patient will receive a letter notifying them of these results.
== END 2024-11-17 00:28 ==
LOC: DI 00:08
PROVIDERS: PCP Nurse Practitioner Family; Visit Provider Nurse Practitioner Family
DX: Z12.31 Encounter for screening mammogram for malignant neoplasm of breast (principal); R92.323 Mammographic fibroglandular density, bilateral breasts
CPT/HCPCS: 77063; 77067